=== PATIENT | female | born 1980 | race Caucasian/White ===

== ENCOUNTER → 2023-04-12 18:08 | Outpatient (REF) | payer OTHER, SELFPAY | LOC: RAD 18:08 | PROVIDERS: ATTENDING PHYSICIAN Internal Medicine; FAMILY PHYSICIAN Nurse Practitioner Family | DX: M25.50 Pain in unspecified joint (principal); M25.60 Stiffness of unspecified joint, not elsewhere classified; R53.82 Chronic fatigue, unspecified | CPT/HCPCS: 72100; 72190 ==

== ENCOUNTER → 2024-06-29 14:06 | Outpatient (REF) | payer OTHER, SELFPAY | LOC: HWRAD 14:06 | PROVIDERS: ATTENDING PHYSICIAN Nurse Practitioner Family | DX: M54.50 Low back pain, unspecified (principal) | CPT/HCPCS: 72110 ==

== ENCOUNTER → 2024-08-19 15:25 | Outpatient (REF) | payer OTHER, SELFPAY | LOC: WDC 15:25 | PROVIDERS: ATTENDING PHYSICIAN Nurse Practitioner Family | DX: Z12.31 Encounter for screening mammogram for malignant neoplasm of breast (principal) | CPT/HCPCS: 77063; 77067 ==

== ENCOUNTER → 2024-09-21 12:51 | Outpatient (REF) | payer OTHER, SELFPAY | LOC: RCS 12:51 | PROVIDERS: ATTENDING PHYSICIAN Nurse Practitioner Family | DX: R06.09 Other forms of dyspnea (principal) | CPT/HCPCS: 93306 ==

== ENCOUNTER → 2024-11-30 14:49 | Outpatient (REF) | payer OTHER, SELFPAY | LOC: REG 14:49 | PROVIDERS: ATTENDING PHYSICIAN Specialist; FAMILY PHYSICIAN Nurse Practitioner Family | DX: N20.1 Calculus of ureter (principal) | CPT/HCPCS: 74018 ==

== ENCOUNTER → 2024-12-28 17:51 | Outpatient (REF) | payer OTHER, SELFPAY | LOC: MRI 3T 17:51 | PROVIDERS: ATTENDING PHYSICIAN Nurse Practitioner Family | DX: S09.90XA Unspecified injury of head, initial encounter (principal); F07.81 Postconcussional syndrome; R26.89 Other abnormalities of gait and mobility | CPT/HCPCS: 70553; A9575 ==